=== PATIENT | male | born 1995 | race African-American/Black ===

== ENCOUNTER 2021-11-03 14:30 | Emergency (ER) | payer MEDICARE, MEDICAID ==
[~2021-11-03] VITALS: Ht 182.9 cm; Wt 68.0 kg
[~2021-11-03 14:30] MED LIST: AMIODARONE; LISI20TA31 PO; SERT50TA PO
[2021-11-03 15:19] VITALS: BP 128/68
[2021-11-03 15:38] LABS: HEMATOCRIT. 45.3 % (42.0-52.0); HEMOGLOBIN. 15.6 g/dL (14.0-18.0); MEAN PLATELET VOLUME 10.4 fl (7.4-10.4); PLATELET 112 x1000/uL (130-400); RED BLOOD CELL COUNT 4.87 mill/uL (4.7-6.1)
[2021-11-03 15:44] LABS: CHLORIDE 105 mEq/L (98-107)
[2021-11-03] MEDS ORDERED: AMIODARONE HCL 200 MG TABLET PO ONE (17:30)
[2021-11-03 17:37] LABS: PLATELET ESTIMATE SLIGHTLY DECREASED
[2021-11-03 17:40] LABS: T4 FREE 0.99 ng/dL (0.76-1.46)
== END 2021-11-03 19:19 | disposition home or self-care (01) ==
LOC: ER 14:42
DX: R07.89 Other chest pain (principal); R00.2 Palpitations; Q21.3 Tetralogy of Fallot; I47.2 Ventricular tachycardia; F41.9 Anxiety disorder, unspecified
CPT/HCPCS: 36415; 71045; 80053; 83735; 83880; 84439; 84443; 84481; 84484; 85025; 93005; 99285

== ENCOUNTER 2022-10-18 20:42 | Emergency (ER) | payer MEDICARE, MEDICAID ==
[~2022-10-18] VITALS: Ht 177.8 cm; Wt 73.0 kg
[2022-10-18 20:45] VITALS: O2SAT 100
[2022-10-18] MEDS ORDERED: SODIUM CHLORIDE 0.9% 1,000 ML IV ONE (21:00)
[2022-10-18 21:13] LABS: BASOPHILS % 0.4 % (0.0-2.0); HEMATOCRIT. 46.1 % (42.0-52.0); HEMOGLOBIN. 15.5 g/dL (14.0-18.0); LYMPHOCYTES % 12.2 % (20.0-50.0); MEAN CORPUSCULAR HEMOGLOBIN 31.6 pg (28.0-32.0); MEAN CORPUSCULAR HGB CONC 33.5 g/dL (31.0-37.0); MEAN CORPUSCULAR VOLUME 94.3 fL (80.0-94.0); MONOCYTES % 8.7 % (2.0-8.0); NEUTROPHILS % 77.7 % (40.0-76.0); PLATELET 115 x1000/uL (130-400); RED BLOOD CELL COUNT 4.89 mill/uL (4.7-6.1); RED CELL DISTRIBUTION WIDTH 14.8 % (11.6-14.6); WHITE BLOOD COUNT 8.6 x1000/uL (4.5-11.0)
[2022-10-18 21:17] LABS: CHLORIDE 108 mEq/L (98-107); INDEX HEMOLYSI 2 (1-3); INDEX ICTERIC 1 (1-4); INDEX LIPEMIC 1 (1-3); POTASSIUM 3.4 mEq/L (3.5-5.1); SODIUM 137 mEq/L (136-145)
[2022-10-18 21:27] LABS: ALANINE AMINOTRANSFERASE 49 IU/L (13-61); ALBUMIN 4.2 g/dL (3.4-5.0); ASPARTATE AMINOTRANSFERASE 54 IU/L (15-37); BILIRUBIN TOTAL 0.3 mg/dL (0.1-1.0); CALCIUM 8.9 mg/dL (8.5-10.1); CARBON DIOXIDE 24 mEq/L (21-32); CREATININE 1.5 mg/dL (0.6-1.3); GLUCOSE 130 mg/dL (70-105); NT PRO B-TYPE NATRIURETIC PEP 501 pg/mL (5-125); PROTEIN TOTAL 7.9 g/dL (6.0-8.3); TROPONIN I HIGH SENSITIVITY 20 ng/L (<78); UREA NITROGEN BLOOD 24 mg/dL (7-21)
[2022-10-18 22:17] VITALS: BP 125/70; PULSE 67; RESP 19; TEMP 98.2
== END 2022-10-18 22:30 | disposition left against medical advice (07) ==
LOC: ER 20:42
DX: R00.0 Tachycardia, unspecified (principal); R00.2 Palpitations; I10 Essential (primary) hypertension; Z88.8 Allergy status to other drugs, medicaments and biological substances
CPT/HCPCS: 99285; 96360; 71045; 80053; 83880; 85025; 84484; 36415; 93005; J7030